=== PATIENT | male | born 1995 | race Caucasian/White ===

== ENCOUNTER 2020-12-07 01:38 | Inpatient (IN) | payer MEDICAID ==
[~2020-12-07] VITALS: Ht 190.5 cm; Wt 82.8 kg
[2020-12-07] MEDS ORDERED: LORazepam 2 MG/ML VIAL IM ONE (01:45)
[2020-12-07] MEDS ORDERED: DiphenhydrAMINE HCL 50 MG/ML VIAL IM ONE (01:45)
[2020-12-07] MEDS ORDERED: HALOPERIDOL LACTATE 5 MG/ML VIAL IM ONE (01:45)
[2020-12-07] MEDS ORDERED: HALOPERIDOL 5 MG TABLET PO PRN (02:30)
[2020-12-07] MEDS ORDERED: ZOLPIDEM TARTRATE 10 MG TABLET PO PRN (02:30)
[2020-12-07 02:52] LABS: BASOPHILS % (AUTO) 0.5 % (0.0-2.0); EOSINOPHILS % (AUTO) 2.2 % (1.0-6.0); LYMPHOCYTES # (AUTO) 1.6 K/uL (1.0-4.8); LYMPHOCYTES % (AUTO) 20.4 % (22.0-44.0); MEAN CORPUSCULAR HEMOGLOBIN 30.3 pg (26.0-34.0); MEAN CORPUSCULAR HGB CONC 34.1 G/dL (31.0-37.0); MEAN CORPUSCULAR VOLUME 89 fL (80-100); MONOCYTES # (AUTO) 0.5 K/uL (0.1-1.0); MONOCYTES % (AUTO) 6.9 % (2.0-9.0); NEUTROPHILS # (AUTO) 5.5 K/uL (1.8-7.7); PLATELET COUNT (AUTO) 183 K/uL (150-450); RED BLOOD CELL COUNT(AUTO) 4.27 MIL/uL (4.50-5.90); RED CELL DISTRIBUTION WIDTH 13.2 % (11.5-14.5)
[2020-12-07 02:58] LABS: APPEARANCE,URINE CLOUDY (CLEAR); GLUCOSE, URINE (UA) NEGATIVE (NEGATIVE); KETONES,URINE TRACE mg/dL (NEGATIVE); LEUKOCYTE ESTERASE ,URINE NEGATIVE (NEGATIVE); NITRATE,URINE NEGATIVE (NEGATIVE); OCCULT BLOOD,URINE TRACE (NEGATIVE); PH,URINE 5.5 (5.0-8.0); PROTEIN,URINE POS 1+ (NEGATIVE); UROBILINOGEN,URINE 0.2 mg/dL (<=1.0)
[2020-12-07 02:59] LABS: AMPHET/METH SCREEN,URINE POSITIVE (NEGATIVE); BARBITURATE SCREEN, URINE NEGATIVE (NEGATIVE); BENZODIAZEPINES SCREEN,URINE POSITIVE (NEGATIVE); CANNABINOID SCREEN,URINE POSITIVE (NEGATIVE); COCAINE SCREEN,URINE NEGATIVE (NEGATIVE); METHADONE SCREEN, URINE NEGATIVE (NEGATIVE); OPIATE SCREEN,URINE NEGATIVE (NEGATIVE)
[2020-12-07 03:01] LABS: ANION GAP 10 mmol/L (8-16); CARBON DIOXIDE 28 mmol/L (22-29); CHLORIDE 109 mmol/L (98-107); GLOMERULAR FILTR. RATE CALC > 60 mL/min (>60); GLUCOSE,RANDOM 94 mg/dL (70-110); POTASSIUM 3.5 mmol/L (3.5-5.1); SODIUM SERUM 147 mmol/L (136-145); UREA NITROGEN, BLOOD 16 mg/dL (7-18)
[2020-12-07 03:02] LABS: BILIRUBIN,URINE PRELIM. POSITIVE (NEGATIVE); PHENCYCLIDINE SCREEN,URINE NEGATIVE (NEGATIVE)
[2020-12-07 03:06] LABS: ALANINE AMINOTRANSFERASE 150 U/L (12-78); ALBUMIN 4.1 g/dL (3.4-5.0); ALKALINE PHOSPHATASE 91 U/L (46-116); ASPARTATE AMINOTRANSFERASE 90 U/L (15-37); BILIRUBIN,TOTAL 0.6 mg/dL (0.1-1.0); TOTAL PROTEIN, SERUM 7.6 g/dL (6.4-8.2)
[2020-12-07 03:12] LABS: BACTERIA,URINE Few /HPF (None Seen); SQUAMOUS EPITHELIAL CELL,UR Rare /LPF (None Seen); WBC,URINE 0-2 /HPF (0-5)
[2020-12-07 03:13] LABS: MUCUS,URINE Few LPF (None Seen)
[2020-12-07 03:22] LABS: COVID AG,FIA SOURCE NASOPHARYNGEAL
[2020-12-07] MEDS ORDERED: LOPERAMIDE HCL 2 MG CAPSULE PO PRN (07:45)
[2020-12-07] MEDS ORDERED: IBUPROFEN 400 MG TABLET PO PRN (07:45)
[2020-12-07] MEDS ORDERED: MAG HYDROX/AL HYDROX/SIMETH ES 30 ML SUSPENSION UDCUP PO PRN (07:45)
[2020-12-07] MEDS ORDERED: GuaiFENesin/D-METHORPHAN [SUGAR-FREE] 200-20MG/10 ML SYRUP UDCUP PO PRN (07:45)
[2020-12-07] MEDS ORDERED: ACETAMINOPHEN 325 MG TABLET PO PRN (07:45)
[2020-12-07] MEDS ORDERED: DOCUSATE SODIUM 100 MG CAPSULE PO PRN (07:45)
[2020-12-07] MEDS ORDERED: ONDANSETRON HCL 4 MG TABLET PO PRN (07:45)
[2020-12-07] MEDS ORDERED: CloNIDine HCL 0.1 MG TABLET PO PRN (07:45)
[2020-12-07] MEDS ORDERED: PETROLATUM,WHITE 28 GM JELLY TP PRN (07:45)
[2020-12-07] MEDS ORDERED: NICOTINE 14 MG/24 HOUR PATCH TD PRN (07:45)
[2020-12-07] MEDS ORDERED: MAGNESIUM HYDROXIDE SUSPENSION 30 ML UDCUP PO PRN (07:45)
[2020-12-07] MEDS ORDERED: ALBUTEROL SULFATE HFA 90 MCG/PUFF 8 GM INHALER IH PRN (07:45)
[2020-12-07] MEDS: LORazepam 2 MG TABLET PO PRN ×2 (10:51→16:52)
[2020-12-07 13:05] VITALS: BP 111/73
[2020-12-07 16:32] VITALS: BP 102/71
[2020-12-07] MEDS: OLANZapine 5 MG TABLET PO SCH (16:52)
[2020-12-08 06:41] VITALS: BP 103/62
[2020-12-08 08:01] LABS: CHOL/HDL RATIO 2.1 (4.2-7.3)
[2020-12-08] MEDS: OLANZapine 5 MG TABLET PO SCH ×2 (08:40→16:54)
[2020-12-08 08:57] VITALS: BP 118/78
[2020-12-08 16:14] VITALS: BP 117/76
[2020-12-08] MEDS: LORazepam 2 MG TABLET PO PRN ×2 (16:54→23:02)
[2020-12-09] MEDS: OLANZapine 5 MG TABLET PO SCH ×2 (08:13→16:30)
[2020-12-09] MEDS: LORazepam 2 MG TABLET PO PRN ×3 (08:13→20:33)
[2020-12-09 08:37] VITALS: BP 113/70
[2020-12-09 16:21] VITALS: BP 120/76
[2020-12-10] MEDS: LORazepam 2 MG TABLET PO PRN ×3 (00:43→12:30)
[2020-12-10 06:33] VITALS: BP 134/86
[2020-12-10] MEDS: OLANZapine 5 MG TABLET PO SCH (08:36)
[2020-12-10 09:18] VITALS: BP 107/60
[2020-12-10] MEDS ORDERED: OLAN5TAB52 PO (13:07)
== END 2020-12-10 14:20 | disposition home or self-care (01) | DRG 750 ==
LOC: EMS 01:40 → B3A 03:00
PROVIDERS: ADMIT Psychiatry & Neurology Psychiatry; ATTEND Psychiatry & Neurology Psychiatry
DX: F20.9 Schizophrenia, unspecified (principal); E87.0 Hyperosmolality and hypernatremia; F41.9 Anxiety disorder, unspecified; F17.210 Nicotine dependence, cigarettes, uncomplicated; D64.9 Anemia, unspecified; Z20.822 Contact with and (suspected) exposure to COVID-19
CPT/HCPCS: 51701; 80053; 80061; 81001; 85025; 99291; G0480; J1200; J1630; J2060